=== PATIENT | female | born 1995 | race Caucasian/White ===

== ENCOUNTER 2020-03-04 22:53 | Emergency (ER) | payer BC ==
[~2020-03-04] VITALS: Ht 175.3 cm; Wt 57.3 kg
[2020-03-04 23:00] VITALS: TEMP 99.3
[2020-03-04 23:28] LABS: COLLECTION METHOD CLEAN CATCH
[2020-03-04 23:42] LABS: PH 5 (5-8); SQUAMOUS EPITHELIAL 0-2 /hpf; URINE APPEARANCE Hazy; URINE BACTERIA None Seen /hpf; URINE BILIRUBIN Negative (NEGATIVE); URINE BLOOD 3+ (NEGATIVE); URINE COLOR Yellow; URINE GLUCOSE Negative (NEGATIVE); URINE KETONE Negative (NEGATIVE); URINE LEUKOCYTE ESTERASE Negative (NEGATIVE); URINE NITRATE Negative (NEGATIVE); URINE PROTEIN(semi-quant) 1+ (NEGATIVE); URINE RBC >50 /hpf; URINE UROBILINOGEN Negative (NEGATIVE)
[2020-03-04 23:44] LABS: BASO % 0.4 % (0.0-2.0); EOS # 0.3 (0.0-0.7); EOS % 2.9 % (0-4.0); GRAN # 4.8 (1.4-6.5); GRAN % 51.4 % (42.2-75.2); HEMOGLOBIN 11.7 g/dl (12.5-16.0); LYMPH # 3.7 (1.2-3.4); LYMPH % 39.1 % (20.0-51.0); MEAN CELL VOLUME 83 fl (80.0-100.0); MEAN CORPUSCULAR HEMOGLOBIN 27 pg (27.0-31.0); MEAN CORPUSCULAR HGB CONC 33 g/dl (33.0-37.0); MEAN PLATELET VOLUME 10.3 fl (7.4-10.4); MONO # 0.6 (0.1-0.6); PLATELET COUNT 292 K/mm3 (130-400); REDCELL DISTRIBUTION WIDTH-CV 15.5 % (11.5-14.5)
[2020-03-04 23:45] LABS: HEMATOCRIT 35.8 % (37.0-47.0)
[2020-03-04 23:51] LABS: ALANINE AMINOTRANSFERASE 15 U/L (4-34); ALBUMIN 4.4 gm/dL (3.5-5.0); ALCOHOL(ethanol),MEDICAL 135 mg/dL; ALKALINE PHOSPHATASE 68 U/L (50-136); ANION GAP 10 mmol/L (7-16); AST,SGOT 32 U/L (15-37); BILIRUBIN,TOTAL 0.2 mg/dL (0.0-1.0); BLOOD UREA NITROGEN 16 mg/dL (7-17); CALCIUM 8.7 mg/dL (8.4-10.2); CARBON DIOXIDE 25 mmol/L (22-30); CHLORIDE 108 mmol/L (98-107); CREATININE, serum 0.64 (0.52-1.25); GLUCOSE 95 mg/dL (74-106); POTASSIUM 3.5 mmol/L (3.4-5.0); SODIUM 143 mmol/L (137-145); TOTAL PROTEIN 7.6 gm/dL (6.4-8.2)
[2020-03-04 23:52] LABS: ACETAMINOPHEN < 10 ug/mL (10-30); SALICYLATE < 1.0 mg/dL
[2020-03-04 23:56] LABS: TRICYCLIC ANTIDEPRESS URINE NEGATIVE
[2020-03-05 02:50] VITALS: BP 125/85; PULSE 95
== END 2020-03-05 02:52 | disposition home or self-care (01) ==
LOC: COL.ER 22:53
PROVIDERS: Nurse Practitioner Primary Care
DX: F32.9 Major depressive disorder, single episode, unspecified (principal); Z32.02 Encounter for pregnancy test, result negative; Z79.811 Long term (current) use of aromatase inhibitors